=== PATIENT | male | born 1990 | race Caucasian/White ===

== ENCOUNTER 2018-09-23 18:47 | Emergency (ER) | payer OTHER ==
[~2018-09-23] VITALS: Ht 180.3 cm; Wt 72.6 kg
[2018-09-23 19:47] LABS: URINE BILIRUBIN NEGATIVE (Negative); URINE BLOOD NEGATIVE (Negative); URINE CLARITY CLEAR; URINE COLOR YELLOW; URINE GLUCOSE-RANDOM* NEGATIVE (Negative); URINE KETONES TRACE (Negative); URINE LEUKOCYTES-REFLEX NEGATIVE (Negative); URINE NITRITE-REFLEX NEGATIVE (Negative); URINE PROTEIN (DIPSTICK) NEGATIVE (Negative); URINE SPECIFIC GRAVITY 1.025 (1.005-1.035); URINE UROBILINOGEN >= 8.0 E.U./dl (0.2-1.0)
[2018-09-23] MEDS ORDERED: NAPROSYN500 MG PO (20:57)
[2018-09-23 21:02] VITALS: BP 119/82
== END 2018-09-23 21:06 | disposition home or self-care (01) ==
LOC: ER 18:47
PROVIDERS: Emergency Medicine
DX: N50.89 Other specified disorders of the male genital organs (principal)